=== PATIENT | male | born 1970 | race Caucasian/White ===

== ENCOUNTER 2016-07-02 09:23 | Day surgery (SDC) | payer BC, OTHER ==
[2016-06-27 10:16] LABS: BASOPHILS 0.4 %; BASOPHILS ABSOLUTE 0.03 10/3/uL (0.0-0.16); EOSINOPHILS 2.8 %; EOSINOPHILS ABSOLUTE 0.23 10/3/uL (0.0-0.53); HEMATOCRIT 47.4 % (40.0-51.0); HEMOGLOBIN 16.3 g/dL (13.6-17.8); IMMATURE GRANULOCYTES 0.4 %; IMMATURE GRANULOCYTES ABSOLUTE 0.03 10/3/uL (0.0-0.11); LYMPHOCYTES 22.4 %; LYMPHOCYTES ABSOLUTE 1.84 10/3/uL (0.67-4.30); MEAN CORPUS HGB CONC 34.4 g/dL (32.0-36.0); MEAN CORPUSCULAR HEMOGLOB 31.4 pg (26.0-34.0); MEAN CORPUSCULAR VOLUME 91.3 fL (80-100); MEAN PLATELET VOLUME 11.5 fL (9.2-13.0); MONOCYTES 7.2 %; MONOCYTES ABSOLUTE 0.59 10/3/uL (0.21-1.20); NEUTROPHILS 66.8 %; NEUTROPHILS ABSOLUTE 5.49 10/3/uL (2.02-8.40); PLATELET COUNT 187 10/3/uL (150-400); RBC DISTRIBUTION WIDTH 13.1 % (12.0-16.0); RED CELL COUNT 5.19 10/6/uL (4.7-6.1); WHITE BLOOD CELLS 8.2 10/3/uL (4.5-10.5)
[2016-06-27 10:17] LABS: MANUAL DIFF NO %
[2016-06-27 10:39] LABS: A/G RATIO 1.1 (0.7-1.9); ALBUMIN 3.7 G/DL (3.5-5.0); ALKALINE PHOSPHATASE 66 U/L (45-117); BUN (BLOOD UREA NITROGEN) 10 MG/DL (6-23); CALCIUM, SERUM 8.9 MG/DL (8.5-10.4); CHLORIDE, SERUM 103 MMOL/L (96-112); CO2 (CARBON DIOXIDE) 33 MMOL/L (24-34); CREATININE 0.86 MG/DL (0.70-1.30); GFR AFRICAN AMERICAN 120 ML/MIN (>=60); GFR NON AFRICAN AMERICAN 103 ML/MIN (>=60); GLOBULIN 3.4 G/DL (2.5-4.1); GLUCOSE, SERUM 112 MG/DL (60-99); POTASSIUM, SERUM 4.4 MMOL/L (3.5-5.3); SGOT(AST) 17 U/L (5-40); SGPT(ALT) 34 U/L (5-65); SODIUM, SERUM 139 MMOL/L (135-148); TOTAL BILIRUBIN 0.5 MG/DL (0-1.2); TOTAL PROTEIN 7.1 G/DL (6.0-8.5)
--- NOTE | ~2016-07-02 | OP ---
Record Of Operation [facility] [address] [place]. [address] NAME: PAVEL MOLINA JR : 66 STATUS : [facility]#: [id number] AGE: 45 ADM/REG DATE : 07/02/16 MR#: [id number] REPORT SERV DATE: 07/03/16 DICTATED BY: TOM BLANCO JR. DATE: 07/02/16 REPORT STATUS : Draft TRANSCRIBED BY: MODL DATE: 07/02/16 DATE OF PROCEDURE: 07/02/2016 SURGEON: Tom Blanco M.D. DIET AIDE: Chinmay Houston. PROCEDURES: Laparoscopic cholecystectomy, repair of recurrent umbilical hernia. PREOPERATIVE DIAGNOSIS: Cholelithiasis. POSTOPERATIVE DIAGNOSIS: Cholelithiasis with recurrent umbilical hernia. ANESTHESIA: General. INDICATIONS: This patient has presented with upper abdominal pain and also mid abdominal pain. Imaging does show a small ventral hernia adjacent to previous repair. He also has cholelithiasis. Cholecystectomy was indicated along with repair of the hernia. FINDINGS: On exploration of the abdomen, there was hernia in the supraumbilical region during the entrance site. Near the fundus of gallbladder, there is evidence of chronic inflammation and a large stone is present in the gallbladder infundibulum. No other significant findings were found in the upper abdomen and the infraumbilical site. There is adhesion of omentum to the previous hernia repair site and what appears to be some old laparoscopically placed mesh with nonabsorbable tacking. This was taken beyond because of the firm nature of this and also that there was a piece of fat necrosis. Once this was accomplished, the findings were repaired primarily and no additional findings were encountered. DESCRIPTION OF PROCEDURE: With adequate general anesthesia, the patient was placed in supine position. The abdomen was prepped and draped sterilely. Marcaine 0.5% was used for local infiltration of all trocar sites. A supraumbilical incision was made. The dissection was carried down sharply through the subcutaneous tissues. The peritoneum was entered. This appeared initially to be a hernia sac and this was freed up to enter the peritoneal cavity proper. A balloon-tipped trocar was introduced. The abdomen was insufflated with CO2. The laparoscope was introduced as noted. Then, a 10-mm trocar was placed in the epigastric region and 12 in the subcostal. The gallbladder was identified, grasped, and retracted in a cephalad manner. Adhesions were taken off the gallbladder. Cystic duct and artery were identified, doubly clipped, and divided. The gallbladder was removed from its bed. Electrocautery was extracted through the umbilical site. This was visualized from the epigastric site and showed the adhesions as noted. Then, the supraumbilical incision was enlarged slightly and underlying adhesions were dissected free and the previous repair was excised from the surrounding tissues with the sac and this was submitted to Pathology. The flaps were raised around the fascia, which was then able to be approximated with interrupted [id number] sutures of 0 Novafil. Previously, trocar was then removed from the upper abdomen and hemostasis was assured. A 19-Paolo drain was left in the umbilical site because Record Of Operation [address] [address] NAME: PAVEL MOLINA : 66 STATUS : [facility] PAT#: [id number] AGE: 45 ADM/REG DATE : 07/02/16 MR#: [id number] REPORT SERV DATE: 07/03/16 DICTATED BY: TOM BLANCO JR. DATE: 07/02/16 REPORT STATUS : Draft TRANSCRIBED BY: GHASSAN DATE: 07/02/16 of the space required. The wound was closed, subcutaneous Vicryl, and dermal Monocryl as were the other trocar sites. A negative pressure dressing was placed. The patient left the operating room in satisfactory condition. ESTIMATED BLOOD LOSS: 50 mL. SAUL/GHASSAN Tom Blanco Jr., M.D. / [id number] CC: Mary Mascorro Jr., N.P.
[~2016-07-02 09:23] MED LIST: FARXIGA5 PO; GLUCOPHAGE1000 MG PO; MIRALAX POWDER1 PKT PO; NORCO1 TAB PO; OPANA ER10 MG PO; PRAVACHOL40 MG PO; PRIN10 PO; TRULICITY1.5 MG/0.5 SQ
== END 2016-07-02 20:28 | disposition home or self-care (01) ==
LOC: SDC 09:23
PROVIDERS: Specialist
PROC: 0WQF4ZZ Repair Abdominal Wall, Percutaneous Endoscopic Approach (ICD-10-PCS; principal; 2016-07-02 12:00)
PROC: 0FT44ZZ Resection of Gallbladder, Percutaneous Endoscopic Approach (ICD-10-PCS; 2016-07-02 12:00)
DX: K80.10 Calculus of gallbladder with chronic cholecystitis without obstruction (principal); K82.8 Other specified diseases of gallbladder; K42.9 Umbilical hernia without obstruction or gangrene; K21.9 Gastro-esophageal reflux disease without esophagitis; E11.9 Type 2 diabetes mellitus without complications; E78.00 Pure hypercholesterolemia, unspecified; J44.9 Chronic obstructive pulmonary disease, unspecified; G47.33 Obstructive sleep apnea (adult) (pediatric); G89.4 Chronic pain syndrome; M51.36 Other intervertebral disc degeneration, lumbar region; L80 Vitiligo; L71.9 Rosacea, unspecified; F17.220 Nicotine dependence, chewing tobacco, uncomplicated; E66.01 Morbid (severe) obesity due to excess calories; Z68.41 Body mass index [BMI] 40.0-44.9, adult; Z80.9 Family history of malignant neoplasm, unspecified; Z80.1 Family history of malignant neoplasm of trachea, bronchus and lung; Z98.890 Other specified postprocedural states; Z99.89 Dependence on other enabling machines and devices; Z79.84 Long term (current) use of oral hypoglycemic drugs; Z79.891 Long term (current) use of opiate analgesic; Z79.899 Other long term (current) drug therapy
CPT/HCPCS: 71020; 80053; 82150; 82962; 83690; 85025; 87015; 87070; 87075; 87102; 87116; 87205; 88302; 88304; 93005; A9270-GY; J0330; J0690; J1170; J2250; J2405; J2710; J3010; Q9967